=== PATIENT | female | born 1995 | race Caucasian/White ===

== ENCOUNTER 2024-10-13 12:02 | Outpatient (CLI) | payer OTHER, SELFPAY ==
[~2024-10-13 12:02] MED LIST: iohexol 350MG/ML 100ml bottle IV ONE
[2024-10-13 12:49] LABS: ANION GAP 7 (8-16); BLOOD UREA NITROGEN 5 MG/DL (7-18); BUN/CREATININE RATIO 5.6 (10.0-20.0); CALCIUM 8.9 MG/DL (8.5-10.1); CHLORIDE 106 MMOL/L (99-107); CREATININE 0.89 MG/DL (0.40-0.90); GLUCOSE 91 MG/DL (70-104); SODIUM 139 MMOL/L (135-145); TOTAL CARBON DIOXIDE 25.9 MMOL/L (24-32); eGFR 74 ML/MIN
== END 2024-10-13 23:59 | disposition home or self-care (01) ==
LOC: RAD 12:02
PROVIDERS: ATTEND Internal Medicine Interventional Cardiology
DX: R00.2 Palpitations (principal); R06.02 Shortness of breath
CPT/HCPCS: 36415; 71275; 80048; Q9967